=== PATIENT | female | born 2000 | race Hispanic/Latino ===

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

== ENCOUNTER 2023-02-27 11:27 | Emergency (ER) | payer OTHER, MEDICAID ==
[~2023-02-27] VITALS: Ht 157.5 cm; Wt 112.9 kg
[2023-02-27 11:28] VITALS: BP 132/74; PULSE 116; RESP 20
== END 2023-02-27 13:36 | disposition left against medical advice (07) ==
LOC: EDH 11:27
DX: M54.9 Dorsalgia, unspecified (principal); Z53.21 Procedure and treatment not carried out due to patient leaving prior to being seen by health care provider
CPT/HCPCS: 99281